=== PATIENT | female | born 1950 | race Caucasian/White ===

== ENCOUNTER 2017-12-21 11:22 | Outpatient (CLI) | payer BC, MEDICARE | END 2017-12-21 11:23 | disposition home or self-care (01) | LOC: BICRAD 11:22 | PROVIDERS: ATTEND Family Medicine | DX: R05 Cough (principal); J40 Bronchitis, not specified as acute or chronic; I51.7 Cardiomegaly | CPT/HCPCS: 71046 ==

== ENCOUNTER 2017-12-27 19:00 | Outpatient (CLI) | payer BC, MEDICARE | END 2017-12-27 19:01 | disposition home or self-care (01) | LOC: SLEEPLAB 19:00 | PROVIDERS: ATTEND Internal Medicine | DX: G47.33 Obstructive sleep apnea (adult) (pediatric) (principal); I11.0 Hypertensive heart disease with heart failure; I50.9 Heart failure, unspecified; K21.9 Gastro-esophageal reflux disease without esophagitis; R09.02 Hypoxemia; R35.1 Nocturia | CPT/HCPCS: 95806 ==

== ENCOUNTER 2018-01-01 15:20 | Outpatient (CLI) | payer BC, MEDICARE | END 2018-01-01 15:21 | disposition home or self-care (01) | LOC: BICMAMMO 15:20 | PROVIDERS: ATTEND Family Medicine | DX: Z12.31 Encounter for screening mammogram for malignant neoplasm of breast (principal); Z80.3 Family history of malignant neoplasm of breast | CPT/HCPCS: 77063; 77067 ==

== ENCOUNTER 2018-04-24 09:35 | Outpatient (CLI) | payer BC, MEDICARE | END 2018-04-24 09:36 | disposition home or self-care (01) | LOC: BICRAD 09:35 | PROVIDERS: ATTEND Family Medicine | DX: M25.562 Pain in left knee (principal); M79.89 Other specified soft tissue disorders; M17.12 Unilateral primary osteoarthritis, left knee | CPT/HCPCS: 81001; 87086 ==

== ENCOUNTER 2018-09-04 14:57 | Outpatient (CLI) | payer BC, MEDICARE ==
--- NOTE | 2018-09-04 16:33 | ULT ---
THYROID ULTRASOUND: 09/04/18 INDICATION: History of thyroid nodules. COMPARISON: None. FINDINGS: The right thyroid lobe measures 3.6 x 1.5 x 1.6 cm. The left thyroid lobe measures 4.4 x 1.8 x 1.5 cm . Thyroid isthmus measures 0.5 cm. No suspicious thyroid nodule is identified. IMPRESSION: TIRADS category 1 - normal. No suspicious thyroid nodule identified. POS: TIERRA
== END 2018-09-04 14:58 | disposition home or self-care (01) ==
LOC: BICULT 14:57
PROVIDERS: ATTEND Family Medicine
DX: E04.1 Nontoxic single thyroid nodule (principal); I49.9 Cardiac arrhythmia, unspecified
CPT/HCPCS: 36415; 76536; 80048; 83036; 83735; 84439; 84443; 85025

== ENCOUNTER 2019-03-07 13:33 | Outpatient (CLI) | payer MEDICARE, BC ==
--- NOTE | 2019-03-07 14:47 | MMO ---
Bilateral MAMMO Bilat Screen [facility]. CLINICAL HISTORY: Patient is 68 years old and is seen for screening. The patient has the following family history of breast cancer: mother, at age 51. The patient has no personal history of cancer. VIEWS: The views performed were: bilateral craniocaudal with tomosynthesis; bilateral mediolateral oblique with tomosynthesis; and left craniocaudal. FILMS COMPARED: The present examination has been compared to prior imaging studies performed at [facility] on 12/04/2013, 04/22/2015, 04/26/2015 and 01/01/2018. MAMMOGRAM FINDINGS: There are scattered fibroglandular densities. There are no suspicious masses, calcifications or areas of architectural distortion. There are benign appearing calcifications in both breasts. There are no suspicious masses, suspicious calcifications, or new areas of architectural distortion. IMPRESSION: THERE IS NO MAMMOGRAPHIC EVIDENCE OF MALIGNANCY. A ROUTINE FOLLOW-UP MAMMOGRAM IN 1 YEAR IS RECOMMENDED. THE RESULTS OF THIS EXAM WERE SENT TO THE PATIENT. ACR BI-RADS Category 2 - Benign finding MAMMOGRAPHY NOTE: 1. A negative mammogram report should not delay a biopsy if a dominant of clinically suspicious mass is present. 2. Approximately 10% to 15% of breast cancers are not detected by mammography. 3. Adenosis and dense breasts may obscure an underlying neoplasm. Reported by: CAL ANDERSON MD Electonically Signed: [id number]
== END 2019-03-07 13:34 | disposition home or self-care (01) ==
LOC: BICMAMMO 13:33
PROVIDERS: ATTEND Family Medicine
DX: Z12.31 Encounter for screening mammogram for malignant neoplasm of breast (principal); Z80.3 Family history of malignant neoplasm of breast
CPT/HCPCS: 77063; 77067

== ENCOUNTER 2019-05-13 13:37 | Outpatient (CLI) | payer BC, MEDICARE ==
[2019-05-13 14:42] LABS: #Eosinphils 0.2 thou/uL (0.0-0.7); #Lymphocytes 1.5 thou/uL (1.20-3.40); #Monocytes 0.7 thou/uL (0.11-0.59); #Neutrophils 4.9 thou/uL (1.40-6.50); %Basophils 0.2 % (0.0-1.0); %Eosinophils 3.4 % (0.0-10.0); %Lymphocytes 19.9 % (21.0-51.0); %Neutrophils 67.5 % (42.0-75.0); Hemoglobin 15.2 g/dL (12.0-16.0); Mean Corpuscular HGB CONC 32.4 g/dL (32.0-36.0); Mean Corpuscular Hemoglobin 29.7 pg (27.0-31.0); Mean Corpuscular Volume 91.6 fL (78.0-98.0); Mean Platelet Volume 8.4 fL (7.4-10.4); Platelet Count 225 thou/uL (130-400); RBC Distribution Width 13.6 % (11.5-14.5); Red Blood Cell (RBC) Count 5.13 mill/uL (4.20-5.40); White Blood Cell (WBC) Count 7.3 thou/uL (4.8-10.8)
[2019-05-13 15:04] LABS: ALT (SGPT) 18 U/L (8-55); AST (SGOT) 13 U/L (5-34); Albumin 4.2 g/dL (3.4-4.8); Alkaline Phosphatase 69 U/L (40-150); Anion Gap 11 mmol/L (10-20); BUN (Urea Nitrogen) 13 mg/dL (9.8-20.1); Bilirubin, Total 0.6 mg/dL (0.2-1.2); Calc. Creatinine Clearance 0 mL/min (70-130); Calcium 9.5 mg/dL (7.8-10.44); Carbon Dioxide 28 mmol/L (23-31); Chloride 106 mmol/L (98-107); Estimated GFR-MDRD 57; Globulin 2.7 g/dL (2.4-3.5); Glucose 91 mg/dL (80-115); Potassium 3.7 mmol/L (3.5-5.1); Protein, Total 6.9 g/dL (6.0-8.3); Sodium 141 mmol/L (136-145)
== END 2019-05-13 13:38 | disposition home or self-care (01) ==
LOC: LABBT 13:37
PROVIDERS: ATTEND Internal Medicine Cardiovascular Disease
DX: Z01.812 Encounter for preprocedural laboratory examination (principal); R94.39 Abnormal result of other cardiovascular function study
CPT/HCPCS: 80053; 85025

== ENCOUNTER 2019-05-21 05:41 | Day surgery (SDC) | payer BC, MEDICARE ==
[2019-05-13 14:19] VITALS: BMI 38.7
[2019-05-21] MEDS ORDERED: Lidocaine 1% (PF) 30 ML VIAL ONE (06:38)
[2019-05-21] MEDS ORDERED: Diazepam 5 MG TAB ONE (06:50)
[2019-05-21] MEDS ORDERED: Nitroglycerin 100MG/250ML BOT 250 ML ONE (06:51)
[2019-05-21] MEDS ORDERED: Verapamil 5 MG/2 ML VIAL ONE (06:51)
[2019-05-21] MEDS ORDERED: Heparin 10,000 UNITS/1 ML VIAL ONE (06:51)
[2019-05-21] MEDS ORDERED: Midazolam HCl 2 mg/2 ml Vial ONE (07:02)
[2019-05-21] MEDS ORDERED: Fentanyl 100 MCG/2 ML VIAL ONE (07:02)
[2019-05-21] MEDS ORDERED: Protamine Sulfate 50 MG/5 ML VIAL ONE (08:05)
[2019-05-21] MEDS ORDERED: Iopamidol 370 76% 100 ML VIAL ONE (17:39)
== END 2019-05-21 13:30 | disposition home or self-care (01) ==
LOC: CCL 05:41
PROVIDERS: ATTEND Internal Medicine Cardiovascular Disease
PROC: B2051ZZ Plain Radiography of Left Heart using Low Osmolar Contrast (ICD-10-PCS; principal; 2019-05-21)
PROC: 4A023N7 Measurement of Cardiac Sampling and Pressure, Left Heart, Percutaneous Approach (ICD-10-PCS; principal; 2019-05-21)
DX: I48.91 Unspecified atrial fibrillation (principal); I10 Essential (primary) hypertension; E03.9 Hypothyroidism, unspecified; G47.33 Obstructive sleep apnea (adult) (pediatric); Z79.01 Long term (current) use of anticoagulants; Z79.899 Other long term (current) drug therapy; Z99.89 Dependence on other enabling machines and devices
CPT/HCPCS: 76942; 85347; 93458; 99152; C1769; J1644; J2001; J2250; J2720; J3010; Q9967